=== PATIENT | male | born 2000 | race Caucasian/White ===

== ENCOUNTER → 2022-11-14 | Outpatient (CLI) | payer BC ==
[~2022-11-14] VITALS: Ht 182.9 cm; Wt 105.6 kg
[2022-11-14 07:51] VITALS: BP 132/85; PULSE 71; TEMP 97.9
--- NOTE | 2022-11-14 08:35 | NUR ---
procedure cancelled by dr xie
== END ==
LOC: COL.RAD 07:17
DX: R59.0 Localized enlarged lymph nodes (principal)